=== PATIENT | female | born 1940 | race Caucasian/White ===

== ENCOUNTER 2021-05-05 06:41 | Emergency (ER) | payer MEDICARE ==
[~2021-05-05 06:41] MED LIST: ASPIRIN EC81 MG PO; COREG 6.25MG6.25 MG PO; CRESTOR20 MG PO; NORVASC5 MG PO; ZETIA10 MG PO
[2021-05-05 07:09] LABS: EOSINOPHIL 6.1 % (0-7); HCT 43.4 % (37.0-47.0); HGB 14.2 g/dl (12.5-16.0); LYMPHOCYTE 27.6 % (15-48); MCH 28.7 pg (25.0-31.0); MCHC 32.7 g/dL (32.0-36.0); MCV 87.9 fL (78.0-100.0); MONOCYTE 11.5 % (0-12); NEUTROPHIL 53.6 % (41-80); NRBC 0; PLT 224 K/uL (150-400); RBC 4.94 M/uL (4.20-5.40); RDW 12.6 % (11.5-14.0); WBC 4.1 K/uL (4.0-10.5)
[2021-05-05 07:13] LABS: INR 1.05 (0.9-1.2); PROTHROMBIN TIME 13.1 SECONDS (11.8-13.4); PTT 29.2 SECONDS (24.4-34.7)
[2021-05-05 07:26] LABS: BILIRUBIN - TOTAL 0.4 mg/dL (0.2-1.0); BUN/CREAT RATIO (CALC) 26.7 RATIO; CREATININE 0.86 mg/dL (0.51-0.95); POTASSIUM 3.4 mmol/L (3.5-5.1)
== END 2021-05-05 15:17 | disposition other institution (70) ==
LOC: FER 06:41
PROVIDERS: Emergency Medicine Emergency Medical Services
DX: R07.9 Chest pain, unspecified (principal); I25.2 Old myocardial infarction
CPT/HCPCS: 36415; 71045; 80053; 84484; 85025; 85610; 85730; 93005